=== PATIENT | female | born 1960 | race Caucasian/White ===

== ENCOUNTER 2019-05-11 20:18 | Emergency (ER) | payer OTHER ==
[~2019-05-11] VITALS: Ht 165.1 cm; Wt 71.7 kg
[2019-05-11 20:38] VITALS: BP 126/80
--- NOTE | 2019-05-11 20:51 | NUR ---
FELIX. AAOX4. NO SOB. AMBULATORY. C/O R ELBOW PAIN THAT IS RADIATING TO R UPPER ARM R SHOULDER AND NECK WELL TO THE R HAND. PT REPORTS HAVING TRAUMA TO THE ELBOW 3 MONTHS AGO WHEN THE PAIN STARTED AND IT COMES AND GOES. 6 DAYS A GO IS WHEN THE PAIN BECAME CONTINIOUS AND WORST TODAY WITH THE RADIATING PAIN STARTED. PT CANT DESCRIBE PAIN SENSATION. RATE PAIN @ 8/1O WHEN PRESENT. 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 TO ER BED 10. AT BEDSIDE
[2019-05-11] MEDS ORDERED: IBUPROFEN 600 MG TABLET PO ONE ×2 (21:43→22:00)
--- NOTE | 2019-05-11 21:56 | NUR ---
Patient discharged to home in stable condition. Written and verbal after care instructions given. Patient verbalizes understanding of instruction. Pt ambulatory with a steady gait
== END 2019-05-11 21:57 | disposition home or self-care (01) ==
LOC: ER 20:22
DX: S29.012A Strain of muscle and tendon of back wall of thorax, initial encounter (principal); M77.11 Lateral epicondylitis, right elbow; Z98.890 Other specified postprocedural states; Z90.89 Acquired absence of other organs; Z98.84 Bariatric surgery status; X58.XXXA Exposure to other specified factors, initial encounter; Y93.89 Activity, other specified; Y92.89 Other specified places as the place of occurrence of the external cause; Y99.0 Civilian activity done for income or pay
CPT/HCPCS: 73080-TC

== ENCOUNTER 2021-03-10 19:51 | Emergency (ER) | payer OTHER ==
[~2021-03-10] VITALS: Ht 170.2 cm; Wt 70.3 kg
[2021-03-10 20:59] VITALS: BP 141/79
--- NOTE | 2021-03-10 21:01 | NUR ---
PT AAOX4. BIBSELF C/O RUE PAIN RAIATING TO THE NECK X 2 WEEKS, PLACED IN BED 10 ON MONITOR AND PULSE OX. AWAITING ER MD FOR EVAL AND ORDERS.
[2021-03-10] MEDS ORDERED: DEXAMETHASONE SOD PHOSPHATE 10 MG/ML VIAL ONE (21:44)
[2021-03-10] MEDS ORDERED: KETOROLAC TROMETHAMINE INJ 30 MG/ML VIAL ONE (21:44)
[2021-03-10] MEDS ORDERED: HYDR-4303 PO (21:46)
[2021-03-10] MEDS ORDERED: NAPR-1164 PO (21:46)
[2021-03-10] MEDS ORDERED: DEXAMETHASONE SOD PHOSPHATE 4 MG/ML VIAL IM ONE (22:00)
[2021-03-10] MEDS ORDERED: KETOROLAC TROMETHAMINE INJ 60 MG/2 ML VIAL IM ONE (22:00)
== END 2021-03-10 22:04 | disposition home or self-care (01) ==
LOC: ER 19:58
DX: M54.12 Radiculopathy, cervical region (principal); M79.601 Pain in right arm; Z90.89 Acquired absence of other organs; Z98.890 Other specified postprocedural states; Z91.038 Other insect allergy status; Z79.899 Other long term (current) drug therapy
CPT/HCPCS: 96372 ×2; 99284; J1100; J1885